=== PATIENT | female | born 1990 | race Caucasian/White ===

== ENCOUNTER 2025-07-06 17:52 | Emergency (ER) | payer OTHER ==
[~2025-07-06] VITALS: Ht 157.5 cm; Wt 60.0 kg
[2025-07-06 18:19] VITALS: O2SAT 100
[2025-07-06 18:49] LABS: BASOPHILS % 1.0 % (0.0-2.0); EOSINOPHILS % 2.5 % (0.0-5.0); HEMATOCRIT. 40.2 % (36.0-48.0); HEMOGLOBIN. 13.6 g/dL (12.0-16.0); LYMPHOCYTES % 31.5 % (20.0-50.0); MEAN PLATELET VOLUME 8.9 fl (7.4-10.4); MONOCYTES % 7.8 % (2.0-8.0); NEUTROPHILS % 57.2 % (40.0-76.0); PLATELET 216 x1000/uL (130-400); RED BLOOD CELL COUNT 4.58 mill/uL (4.2-5.4); RED CELL DISTRIBUTION WIDTH 13.8 % (11.6-14.6)
[2025-07-06] MEDS: ACETAMINOPHEN 325MG TABLET PO ONE (18:58)
[2025-07-06 19:07] LABS: HCG SCREEN NEGATIVE
[2025-07-06 19:13] LABS: CREATININE 1.3 mg/dL (0.6-1.0); UREA NITROGEN BLOOD 17 mg/dL (9-23)
[2025-07-06 19:15] LABS: ASPARTATE AMINOTRANSFERASE 33 IU/L (<34); BILIRUBIN DIRECT < 0.1 mg/dL (<=3.0); BILIRUBIN TOTAL 0.3 mg/dL (0.1-1.0); PROTEIN TOTAL 6.7 g/dL (6.0-8.3)
[2025-07-06 22:08] LABS: CLARITY URINE CLEAR (CLEAR); COLOR URINE YELLOW (YELLOW); GLUCOSE URINE NEGATIVE (NEGATIVE); KETONES URINE 1+ (NEGATIVE); LEUKOCYTE ESTERASE URINE NEGATIVE (NEGATIVE); NITRITE URINE NEGATIVE (NEGATIVE); OCCULT BLOOD URINE 2+ (NEGATIVE); PH URINE 5.5 (4.5-8.0); PROTEIN URINE TRACE (NEGATIVE); SPECIFIC GRAVITY URINE 1.012 (1.005-1.030); UROBILINOGEN URINE 0.2 E.U./dL (0.2-1.0)
[2025-07-06] MEDS ORDERED: CEPH500C2 MT (22:18)
[2025-07-06 22:24] LABS: BACTERIA URINE 2+; WBC URINE 0-2 /hpf (0-2)
[2025-07-06 22:25] LABS: SQUAMOUS EPITHELIAL CELL URINE 1+ /lpf (RARE/1+)
[2025-07-06 22:26] VITALS: BP 110/63; PULSE 75; RESP 16; TEMP 37.1; O2SAT 100
== END 2025-07-06 22:27 | disposition home or self-care (01) ==
LOC: EDBD 17:53 → ER 17:53
DX: R51.9 Headache, unspecified (principal); R42 Dizziness and giddiness; R19.7 Diarrhea, unspecified; Z98.890 Other specified postprocedural states
CPT/HCPCS: 36415; 74176; 80048; 80076; 81003; 84703; 85025; 99284